=== PATIENT | male | born 1955 | race Caucasian/White ===

== ENCOUNTER 2024-03-29 10:40 | Outpatient (CLI) | payer MEDICARE, SELFPAY ==
[2024-03-29 18:45] LABS: Basophils # 0.1 K/mm3 (0-0.2); Eosinophils # 0.3 K/mm3 (0.0-0.4); Eosinophils % 3.4 % (0.1-12.0); Hematocrit 37.7 % (42.0-52.0); Hemoglobin 11.2 g/dL (14.1-18.0); Lymphocytes # 1.4 K/mm3 (0.7-4.5); Lymphocytes % 18.8 % (10-50); Mean Corpuscular HGB Conc 29.7 g/dL (31.8-35.4); Mean Corpuscular Hemoglobin 25.7 pg (27.0-31.2); Mean Corpuscular Volume 86.7 fl (80-94); Mean Platelet Volume 11.5 fl (7.4-10.4); Monocytes # 0.4 K/mm3 (0.1-1.0); Neutrophils # 5.5 K/mm3 (1.8-7.8); Neutrophils % 71.5 % (37.0-80.0); Platelet Count 340 K/mm3 (142-424); Red Blood Count 4.35 M/mm3 (4.60-6.20); Red Cell Distribution Width 14.7 % (11.5-17.5); White Blood Count 7.7 K/mm3 (4.8-10.8)
[2024-03-29 19:42] LABS: Albumin Level 4.3 g/dl (3.5-5.0); Chloride 102 mmol/L (98-107); Sodium 138 mmol/L (136-145)
[2024-03-29 19:43] LABS: Potassium 4.3 mmoL/L (3.5-5.1)
[2024-03-29 19:45] LABS: Alanine Aminotransferase 20 U/L (12-78); Albumin/Globulin Ratio 1.8 (1.1-1.8); Alkaline Phosphatase 90 U/L (38-126); Anion Gap 15.3 mEq/L (5-15); Aspartate Amino Transferase 21 U/L (17-59); Bilirubin,Total 0.7 mg/dl (0.2-1.3); Blood Urea Nitrogen 16 mg/dl (9-20); Carbon Dioxide 25 mmol/L (22.0-30.0); Cholesterol 191 mg/dl (140-200); Estimated Glomerular Filt Rate 84 ml/min (>60); GFR (African American) 102 ML/MIN (>60); Globulin 2.4 g/dL (1.3-3.2); Iron 67 ug/dL (49-181); Total Protein,Serum 6.7 g/dl (6.3-8.2); Triglycerides 394 mg/dl (30-150); VLDL Cholesterol 79 mg/dL (0-40)
[2024-03-29 19:46] LABS: Calcium 9.3 mg/dl (8.4-10.2); Chol/HDL Ratio 6.4 (1-3.5); Glucose 326 mg/dl (74-100); HDL Cholesterol 30 mg/dl (40-60); Hemoglobin A1C 9.7 % (4.0-6.0)
[2024-03-29 19:56] LABS: Total Iron Binding Capacity 418 ug/dL (261-462)
[2024-03-29 19:57] LABS: Direct LDL Cholesterol 71.71 mg/dL (100-129)
[2024-03-29 20:03] LABS: T4 (Thyroxine) 11.2 ug/dl (5.53-11.0)
[2024-03-29 20:12] LABS: 25-OH Vitamin D, Total 41.5 ng/mL (30-100)
[2024-03-29 20:24] LABS: Ferritin 25.4 ng/ml (17.9-464); Thyroid Stimulating Hormone 1.27 uIU/mL (0.465-4.68)
[2024-03-29 20:27] LABS: HIV Combo NEGATIVE (Negative)
[2024-03-29 20:36] LABS: Hepatitis C Ab Qual. W/ RFX NEGATIVE (Negative)
[2024-03-29 20:41] LABS: Vitamin B12 362 pg/mL (239-931)
== END 2024-03-29 23:59 | disposition home or self-care (01) ==
LOC: LAB.DROPOF 03-30 09:18
PROVIDERS: PCP Nurse Practitioner Family; Visit Provider Nurse Practitioner Family
DX: E11.9 Type 2 diabetes mellitus without complications (principal); E55.9 Vitamin D deficiency, unspecified
CPT/HCPCS: 80053; 80061; 82306; 82607; 82728; 82746; 83036; 83540; 83550; 84436; 84443; 85025; 86803; 87389